=== PATIENT | female | born 1980 | race Two or more races ===

== ENCOUNTER 2017-04-16 00:38 | Emergency (ER) | payer MEDICAID ==
[~2017-04-16] VITALS: Ht 170.2 cm; Wt 122.7 kg
[2017-04-16 00:39] VITALS: BP 128/86
== END 2017-04-16 02:29 | disposition home or self-care (01) ==
LOC: ED 02:23
DX: J45.909 Unspecified asthma, uncomplicated (principal)
CPT/HCPCS: 71020; 99284; J7512

== ENCOUNTER 2017-05-23 13:27 | Emergency (ER) | payer MEDICAID ==
[~2017-05-23] VITALS: Ht 170.2 cm; Wt 120.0 kg
[2017-05-23] MEDS ORDERED: ASPIRIN 81 MG TABLET CHEW PO ONE (14:00)
[2017-05-23 14:22] LABS: HEMOGLOBIN 12.5 g/dL (11.7-16.4); WHITE BLOOD COUNT 8.3 x10^3/uL (3.4-10)
[2017-05-23 14:33] LABS: ASPARTATE AMINO TRANSFERASE 12 U/L (15-37); BLOOD UREA NITROGEN 8 mg/dL (7-18)
[2017-05-23] MEDS ORDERED: ASPI-515 PO (14:45)
[2017-05-23] MEDS ORDERED: ASPIRIN 81 MG TABLET CHEW ONE (14:57)
[2017-05-23 15:39] LABS: IS PT STATUS REG ER OR PRE ER? YES
[2017-05-23 15:50] VITALS: BP 126/80
== END 2017-05-23 16:03 | disposition home or self-care (01) ==
LOC: ED 15:01
DX: R07.89 Other chest pain (principal); J45.909 Unspecified asthma, uncomplicated
CPT/HCPCS: 36415; 71010; 80053; 83690; 84484; 85025; 93005; 99285

== ENCOUNTER 2017-11-12 20:58 | Emergency (ER) | payer MEDICAID ==
[~2017-11-12] VITALS: Ht 170.2 cm; Wt 124.6 kg
[~2017-11-12 20:58] MED LIST: ASPI-515 PO
[2017-11-12] MEDS ORDERED: KETOROLAC 30 MG/1 ML IVPush ONE (22:30)
[2017-11-12] MEDS ORDERED: ONDANSETRON 2MG/ML, 2ML IVPush ONE (22:30)
[2017-11-12] MEDS ORDERED: SODIUM CHLORIDE FLUSH 10ML SYR IVF ONE (22:30)
[2017-11-12] MEDS ORDERED: DIPHENHYDRAMINE 50 MG/ML, 1ML IVPush ONE (22:30)
[2017-11-12] MEDS ORDERED: SODIUM CHLORIDE 0.9% 1,000ML IVBOLUS ONE (22:30)
[2017-11-12] MEDS ORDERED: METOCLOPRAMIDE 5 MG/ML, 2ML IVPush ONE (22:30)
[2017-11-12] MEDS ORDERED: ONDANSETRON 2MG/ML, 2ML ONE (23:04)
[2017-11-12] MEDS ORDERED: KETOROLAC 30 MG/1 ML ONE (23:05)
[2017-11-12] MEDS ORDERED: DIPHENHYDRAMINE 50 MG/ML, 1ML ONE (23:05)
[2017-11-12] MEDS ORDERED: METOCLOPRAMIDE 5 MG/ML, 2ML ONE (23:05)
[2017-11-13 00:36] VITALS: BP 132/83
== END 2017-11-13 00:39 | disposition home or self-care (01) ==
LOC: ED 23:06
DX: R51 Headache (principal); I10 Essential (primary) hypertension; J45.909 Unspecified asthma, uncomplicated
CPT/HCPCS: 96361; 96374; 96375; 99284; J1200; J1885; J2405; J2765; J7030

== ENCOUNTER 2019-10-14 14:57 | Emergency (ER) | payer BC, MEDICAID ==
[~2019-10-14] VITALS: Ht 170.2 cm; Wt 97.8 kg
[~2019-10-14 14:57] MED LIST changes: +METO50TA82 PO
[2019-10-14] MEDS ORDERED: DIAZEPAM 5 MG TABLET ONE (15:29)
[2019-10-14] MEDS ORDERED: DIAZEPAM 5 MG TABLET PO ONE (15:30)
[2019-10-14] MEDS ORDERED: OXYcodone/APAP 5/325MG TABLET PO ONE (15:30)
[2019-10-14] MEDS ORDERED: KETOROLAC 30 MG/1 ML IM ONE (15:30)
[2019-10-14] MEDS ORDERED: KETOROLAC 30 MG/1 ML ONE (15:30)
[2019-10-14] MEDS ORDERED: OXYcodone/APAP 5/325MG TABLET ONE (15:30)
[2019-10-14 16:25] VITALS: BP 122/68
== END 2019-10-14 16:28 | disposition home or self-care (01) ==
LOC: ED 16:15
DX: M54.5 Low back pain (principal); J45.909 Unspecified asthma, uncomplicated; I10 Essential (primary) hypertension
CPT/HCPCS: 72110; 96372; 99283; J1885

== ENCOUNTER 2019-11-17 08:11 | Emergency (ER) | payer BC ==
[~2019-11-17] VITALS: Ht 167.6 cm; Wt 97.1 kg
[2019-11-17 08:25] VITALS: BP 147/97
--- NOTE | 2019-11-17 08:49 | NUR ---
PT NAETH BACK FROM TRIAGE FOR CHIEF COMPLAINT OF COUGH AND SINUS CONGESTION FOR 3 DAYS. DENIES FEVER, CHILLS, SOB, CP.
[2019-11-17 09:30] LABS: RAPID INFLUENZA A Negative (Negative); RAPID INFLUENZA B Negative (Negative)
== END 2019-11-17 09:52 | disposition home or self-care (01) ==
LOC: ED 09:09
DX: J01.00 Acute maxillary sinusitis, unspecified (principal); I10 Essential (primary) hypertension; J45.909 Unspecified asthma, uncomplicated
CPT/HCPCS: 71046; 87400; 93005; 99285